=== PATIENT | female | born 1940 | race Caucasian/White ===

== ENCOUNTER 2017-10-05 03:58 | Inpatient (IN) | payer MEDICARE ==
[2017-10-05] MEDS ORDERED: Sodium Chloride 0.9% 10 ML Syringe FLUSH PRN (04:22)
[2017-10-05] MEDS ORDERED: HYDROmorphone 0.5 MG/0.5 ML Syringe IVPUSH ONE (04:24)
[2017-10-05] MEDS ORDERED: Ondansetron 4 MG/2 ML SDV IVPUSH ONE (04:24)
--- NOTE | 2017-10-05 04:27 | EDM.PDOC ---
ED HPI GENERAL MEDICAL PROBLEM - General Chief Complaint: Abdominal Pain Stated Complaint: ABD PAIN Time Seen by Provider: 10/05/17 04:15 Source of Information: Reports: Patient, RN Notes Reviewed History Limitations: Reports: No Limitations - History of Present Illness INITIAL COMMENTS - FREE TEXT/NARRATIVE: 77-year-old female presents emergency department today complaint of abdominal pain, she states this really developed over the last 24 hours does have a history of diverticulitis she suspicious had this has returned she is not had any fevers she did have one episode of nausea and vomiting Middle Abdomen Pain Score (Numeric/FACES): 6 - Related Data Allergies Allergy/AdvReac Type Severity Reaction Status Date / Time nickel [Nickel] Allergy Hives Verified 10/16/15 15:59 Sulfa (Sulfonamide Allergy Hives Verified 10/16/15 15:59 Antibiotics) Home Meds: Home Meds Alendronate Sodium [Fosamax] 70 mg PO Q7D 06/11/15 [History] Aspirin [Adult Low Dose Aspirin EC] 81 mg PO DAILY 06/11/15 [History] Diclofenac Sodium [Voltaren] 75 mg PO BID 06/11/15 [History] Folic Acid 3 mg PO DAILY 06/11/15 [History] Leflunomide 20 mg PO DAILY 06/11/15 [History] Levothyroxine 75 mcg PO DAILY 06/11/15 [History] Methotrexate Sodium/PF [Methotrexate 25 mg/ml Vial] 0.8 ml SQ Q7D 06/11/15 [ History] Multivitamin with Minerals [Multiple Vitamin] 1 tab PO DAILY 06/11/15 [History] Omeprazole 40 mg PO DAILY 06/11/15 [History] Vitamin B Complex [B Complex] 1 tab PO DAILY 06/11/15 [History] Acetaminophen [Tylenol Extra Strength] 1,000 mg PO DAILY 10/16/15 [History] Past Medical History Cardiovascular History: Reports: Other (See Below) Other Cardiovascular History: bilateral ankle edema Gastrointestinal History: Reports: Diverticulosis, GERD Musculoskeletal History: Reports: Fracture, RA, Other (See Below) Other Musculoskeletal History: 2004 left wrist fracture, sciatic nerve pain Neurological History: Reports: Headaches, Chronic Endocrine/Metabolic History: Reports: Hypothyroidism - Infectious Disease History Infectious Disease History: Reports: Chicken Pox, Measles, Mumps - Past Surgical History HEENT Surgical History: Reports: Tonsillectomy Musculoskeletal Surgical History: Reports: Knee Replacement, Other (See Below) Other Musculoskeletal Surgeries/Procedures:: back surgery in Social & Family History - Tobacco Use Smoking Status *Q: Never Smoker Second Hand Smoke Exposure: No - Caffeine Use Caffeine Use: Reports: Tea - Alcohol Use Days Per Week of Alcohol Use: 3 Number of Drinks Per Day: 1 Total Drinks Per Week: 3 - Recreational Drug Use Recreational Drug Use: No ED ROS GENERAL - Review of Systems Review Of Systems: See Below Constitutional: Denies: Fever, Chills HEENT: Reports: No Symptoms Respiratory: Reports: No Symptoms Cardiovascular: Reports: No Symptoms GI/Abdominal: Reports: Abdominal Pain, Flatus, Nausea, Vomiting : Reports: No Symptoms Musculoskeletal: Reports: No Symptoms Skin: Reports: No Symptoms Neurological: Reports: No Symptoms ED EXAM, GI/ABD - Physical Exam Exam: See Below Exam Limited By: No Limitations General Appearance: Alert, WD/WN, No Apparent Distress Respiratory/Chest: No Respiratory Distress, Lungs Clear, Normal Breath Sounds, No Accessory Muscle Use Cardiovascular: Regular Rate, Rhythm, No Murmur GI/Abdominal Exam: Normal Bowel Sounds, Soft, No Organomegaly, No Distention, No Abnormal Bruit, Tender (Left lower quadrant) Course - Vital Signs Last Recorded V/S: Last Vital Signs Temp 96.8 F 10/05/17 04:09 Pulse 58 L 10/05/17 04:09 Resp 16 10/05/17 04:09 BP 124/71 10/05/17 05:15 Pulse Ox 95 10/05/17 04:09 - Orders/Labs/Meds Orders: Active Orders 24 hr Category Date Time Status Gastrointestinal Tube Mgmt [RC] ASDIRECTED Care 10/05/17 06:07 Ordered Peripheral IV Care [RC] . DIRECTED Care 10/05/17 04:22 Active Abdomen Pelvis w Cont [CT] Urgent Exams 10/05/17 04:22 Taken UA W/MICROSCOPIC [URIN] Urgent Lab 10/05/17 06:09 Uncollected Sodium Chloride 0.9% [Normal Saline] 1,000 ml Med 10/05/17 04:30 Active IV ASDIRECTED Sodium Chloride 0.9% [Saline Flush] Med 10/05/17 04:22 Active 10 ml FLUSH ASDIRECTED PRN Nasogastric Orogastric Tube Insertion [OM.PC] Routine Oth 10/05/17 06:07 Ordered Peripheral IV Insertion Adult [OM.PC] Urgent Oth 10/05/17 04:22 Ordered Medication Orders Sodium Chloride (Normal Saline) 1,000 mls @ 500 mls/hr IV ASDIRECTED STEPHEN Last Admin: 10/05/17 05:14 Dose: 500 mls/hr Sodium Chloride (Saline Flush) 10 ml FLUSH ASDIRECTED PRN PRN Reason: Keep Vein Open Last Admin: 10/05/17 04:34 Dose: 10 ml Labs: Laboratory Tests 10/05/17 10/05/17 10/05/17 Range/Units 04:35 04:35 04:35 WBC 12.1 H (4.5-11.0) K/uL RBC 4.01 (3.30-5.50) M/uL Hgb 12.9 (12.0-15.0) g/dL Hct 39.4 (36.0-48.0) % MCV 98 (80-98) fL MCH 32 H (27-31) pg MCHC 33 (32-36) % Plt Count 336 (150-400) K/uL Neut % (Auto) 82 H (36-66) % Lymph % (Auto) 11 L (24-44) % [place] % (Auto) 6 (2-6) % Eos % (Auto) 1 L (2-4) % Baso % (Auto) 0 (0-1) % Sodium 140 (140-148) mmol/L Potassium 4.7 (3.6-5.2) mmol/L Chloride 102 (100-108) mmol/L Carbon Dioxide 26 (21-32) mmol/L Anion Gap 11.7 (5.0-14.0) mmol/L BUN 24 H (7-18) mg/dL Creatinine 0.8 (0.6-1.0) mg/dL Est Cr Clr Drug Dosing 52.99 mL/min Estimated GFR (MDRD) > 60 (>60) Glucose 130 H (74-106) mg/dL Lactic Acid 3.0 H (0.4-2.0) mmol/L Calcium 9.7 D (8.5-10.1) mg/dL Total Bilirubin 0.6 (0.2-1.0) mg/dL AST 37 (15-37) U/L ALT 45 (12-78) U/L Alkaline Phosphatase 120 H (46-116) U/L Total Protein 7.2 (6.4-8.2) g/dL Albumin 3.4 (3.4-5.0) g/dL Globulin 3.8 H (2.3-3.5) g/dL Albumin/Globulin Ratio 0.9 L (1.2-2.2) Meds: Medications Generic Name Dose Route Start Last Admin Trade Name Freq PRN Reason Stop Dose Admin Sodium Chloride 1,000 mls @ 500 mls/hr 10/05/17 04:30 10/05/17 05:14 Normal Saline IV 500 mls/hr ASDIRECTED STEPHEN Administration Sodium Chloride 10 ml 10/05/17 04:22 10/05/17 04:34 Saline Flush FLUSH 10 ml ASDIRECTED PRN Administration Keep Vein Open Discontinued Medications Generic Name Dose Route Start Last Admin Trade Name Freq PRN Reason Stop Dose Admin Hydromorphone HCl 0.5 mg 10/05/17 04:24 10/05/17 04:36 Dilaudid IVPUSH 10/05/17 04:25 0.5 mg ONETIME ONE Administration Sodium Chloride 73 mls @ 3.3 mls/sec 10/05/17 04:56 10/05/17 05:05 Normal Saline IV 10/05/17 04:57 3.3 mls/sec ASDIRECTED STA Administration Iopamidol 100 ml 10/05/17 04:55 10/05/17 05:04 Isovue-300 (61%) IV 10/05/17 04:56 100 ml . DIRECTED STA Administration Ondansetron HCl 4 mg 10/05/17 04:24 10/05/17 04:34 Zofran IVPUSH 10/05/17 04:25 4 mg ONETIME ONE Administration Departure - Departure Time of Disposition: 06:10 Disposition: Admitted As Inpatient 66 Condition: Good Clinical Impression: Small bowel obstruction - Discharge Information Referrals: Stevie Lawson MD [Primary Care Provider] - Forms: ED Department Discharge - My Orders Last 24 Hours: My Active Orders 10/05/17 04:22 Peripheral IV Care [RC] . DIRECTED Abdomen Pelvis w Cont [CT] Urgent Sodium Chloride 0.9% [Saline Flush] 10 ml FLUSH ASDIRECTED PRN Peripheral IV Insertion Adult [OM.PC] Urgent 10/05/17 04:30 Sodium Chloride 0.9% [Normal Saline] 1,000 ml IV ASDIRECTED 10/05/17 06:07 Gastrointestinal Tube Mgmt [RC] ASDIRECTED Nasogastric Orogastric Tube Insertion [OM.PC] Routine 10/05/17 06:09 UA W/MICROSCOPIC [URIN] Urgent - Assessment/Plan Last 24 Hours: My Active Orders 10/05/17 04:22 Peripheral IV Care [RC] . DIRECTED Abdomen Pelvis w Cont [CT] Urgent Sodium Chloride 0.9% [Saline Flush] 10 ml FLUSH ASDIRECTED PRN Peripheral IV Insertion Adult [OM.PC] Urgent 10/05/17 04:30 Sodium Chloride 0.9% [Normal Saline] 1,000 ml IV ASDIRECTED 10/05/17 06:07 Gastrointestinal Tube Mgmt [RC] ASDIRECTED Nasogastric Orogastric Tube Insertion [OM.PC] Routine 10/05/17 06:09 UA W/MICROSCOPIC [URIN] Urgent Plan: Assessment Acuity = acute Site and laterality = small bowel obstruction Etiology = unclear etiology Manifestations = pain, nausea vomiting Location of injury = Home Lab values = WBC elevated at 12.1 consistent leukocytosis, lactic acid elevated at 3.0 consistent with lactic acidosis, CT scan describes the lesion above Plan Called and discussed the case with hospitalist song and dance performer he agreed, and evaluate the patient in the emergency department for admission, NG tube has been placed This note was dictated using [employer] voice recognition software please call with any questions on syntax or adela.
[2017-10-05] MEDS ORDERED: Sodium Chloride 0.9% 1,000 ML IV SCH (04:30)
[2017-10-05] MEDS ORDERED: Iopamidol 612 MG/ML 100 ML Bottle IV STA (04:55)
--- NOTE | 2017-10-05 07:52 | PCM.HP ---
H&P History of Present Illness - General Date of Service: 10/05/17 Admit Problem/Dx: Admission Diagnosis/Problem Admission Diagnosis/Problem Small bowel obstruction Source of Information: Patient, Family, Provider History Limitations: Reports: No Limitations - History of Present Illness Initial Comments - Free Text/Narative: Bea presents to the emergency room today with 24 hours of abdominal pain that has been progressing. Pain started yesterday morning without preceding incident and was relatively mild. Throughout the day she had some more intense episodes but they were not severe enough to cause her to seek attention. Overnight she had severe sharp midabdominal pain that radiated throughout her entire abdomen. These episodes would come and go in waves. She didn't take anything to make the pain go away but did feel better after vomiting once earlier this morning. No obvious trigger to make the pain worse. She's never had pain like this before. Last good bowel movement was about 3 days ago it she's had some small quantity loose bowel movements since that time. She does not report any fevers, chills, night sweats or weight loss. Appetite has been normal up until yesterday. Weight has been stable to slightly higher than usual. No complaints of cough or shortness of breath. She has never had abdominal surgery in the past. She did have lumbar surgery at the end of July but has not had any difficulties from this. Workup in the emergency room revealed evidence for a small bowel obstruction on the CT. Lactic acid is mildly elevated at 3. An NG tube has been placed. She will be admitted for further management. Middle Abdomen Pain Score (Numeric/FACES): 6 - Related Data Allergies/Adverse Reactions: Allergies Allergy/AdvReac Type Severity Reaction Status Date / Time nickel [Nickel] Allergy Hives Verified 10/16/15 15:59 Sulfa (Sulfonamide Allergy Hives Verified 10/16/15 15:59 Antibiotics) Home Medications: Home Meds Alendronate Sodium [Fosamax] 70 mg PO Q7D 06/11/15 [History] Aspirin [Adult Low Dose Aspirin EC] 81 mg PO DAILY 06/11/15 [History] Diclofenac Sodium [Voltaren] 75 mg PO BID 06/11/15 [History] Folic Acid 3 mg PO DAILY 06/11/15 [History] Leflunomide 20 mg PO DAILY 06/11/15 [History] Levothyroxine 75 mcg PO DAILY 06/11/15 [History] Methotrexate Sodium/PF [Methotrexate 25 mg/ml Vial] 0.8 ml SQ Q7D 06/11/15 [ History] Multivitamin with Minerals [Multiple Vitamin] 1 tab PO DAILY 06/11/15 [History] Omeprazole 40 mg PO DAILY 06/11/15 [History] Vitamin B Complex [B Complex] 1 tab PO DAILY 06/11/15 [History] Acetaminophen [Tylenol Extra Strength] 1,000 mg PO DAILY 10/16/15 [History] Past Medical History Cardiovascular History: Reports: Other (See Below) Other Cardiovascular History: bilateral ankle edema Gastrointestinal History: Reports: Diverticulosis, GERD Musculoskeletal History: Reports: Fracture, RA, Other (See Below) Other Musculoskeletal History: 2004 left wrist fracture, sciatic nerve pain Neurological History: Reports: Headaches, Chronic Endocrine/Metabolic History: Reports: Hypothyroidism - Infectious Disease History Infectious Disease History: Reports: Chicken Pox, Measles, Mumps - Past Surgical History HEENT Surgical History: Reports: Tonsillectomy Musculoskeletal Surgical History: Reports: Knee Replacement, Other (See Below) Other Musculoskeletal Surgeries/Procedures:: back surgery in Social & Family History - Family History Oncologic: Reports: Colon (Brother) - Tobacco Use Smoking Status *Q: Never Smoker Second Hand Smoke Exposure: No - Caffeine Use Caffeine Use: Reports: Tea - Alcohol Use Days Per Week of Alcohol Use: 3 Number of Drinks Per Day: 1 Total Drinks Per Week: 3 - Recreational Drug Use Recreational Drug Use: No H&P Review of Systems - Review of Systems: Review Of Systems: See Below Free Text/Narrative: A complete 12 point review of systems was obtained. Pertinent positives and negatives are noted in the history of present illness. All other systems were reviewed and were negative except as noted. Exam - Exam Exam: See Below - Vital Signs Vital Signs: Last Vital Signs Temp 36.0 C 10/05/17 04:09 Pulse 58 L 10/05/17 04:09 Resp 16 10/05/17 04:09 BP 130/64 10/05/17 06:20 Pulse Ox 95 10/05/17 04:09 Weight: 72.575 kg - Exam Quality Assessment: No: Supplemental Oxygen General: Alert, Oriented, Cooperative. No: Mild Distress HEENT: Conjunctiva Clear, Other (NG tube in place). No: Mucosa Moist & [place] ( dry), Scleral Icterus Neck: Supple, Trachea Midline. No: Lymphadenopathy Lungs: Clear to Auscultation, Normal Respiratory Effort Cardiovascular: Regular Rate, Regular Rhythm. No: Systolic Murmur GI/Abdominal Exam: Soft, Distended (Mild), Tender (Mild diffuse). No: Normal Bowel Sounds (Very hypoactive), Guarding Back Exam: Full Range of Motion, Other (Well-healed midline lumbar surgical scar. Mild tenderness on either side of the incision but no erythema, induration or fluctuance) Extremities: Pedal Edema (Trace ankle edema on the right). No: Joint Swelling, Increased Warmth Peripheral Pulses: 2+: Dorsalis Pedis (L), Dorsalis Pedis (R) Skin: Warm, Dry Neuro Extensive - Mental Status: Alert, Oriented x3, Nl Response to Commands Neuro Extensive - Motor, Sensory, Reflexes: CN II-XII Intact. No: Dysarthria, Abnormal Motor, Tremor Psychiatric: Alert, Normal Affect - Patient Data Lab Results Last 24 hrs: Laboratory Results - last 24 hr 10/05/17 10/05/17 10/05/17 Range/Units 04:35 04:35 04:35 WBC 12.1 H (4.5-11.0) K/uL RBC 4.01 (3.30-5.50) M/uL Hgb 12.9 (12.0-15.0) g/dL Hct 39.4 (36.0-48.0) % MCV 98 (80-98) fL MCH 32 H (27-31) pg MCHC 33 (32-36) % Plt Count 336 (150-400) K/uL Neut % (Auto) 82 H (36-66) % Lymph % (Auto) 11 L (24-44) % [place] % (Auto) 6 (2-6) % Eos % (Auto) 1 L (2-4) % Baso % (Auto) 0 (0-1) % Sodium 140 (140-148) mmol/L Potassium 4.7 (3.6-5.2) mmol/L Chloride 102 (100-108) mmol/L Carbon Dioxide 26 (21-32) mmol/L Anion Gap 11.7 (5.0-14.0) mmol/L BUN 24 H (7-18) mg/dL Creatinine 0.8 (0.6-1.0) mg/dL Est Cr Clr Drug Dosing 52.99 mL/min Estimated GFR (MDRD) > 60 (>60) Glucose 130 H (74-106) mg/dL Lactic Acid 3.0 H (0.4-2.0) mmol/L Calcium 9.7 D (8.5-10.1) mg/dL Total Bilirubin 0.6 (0.2-1.0) mg/dL AST 37 (15-37) U/L ALT 45 (12-78) U/L Alkaline Phosphatase 120 H (46-116) U/L Total Protein 7.2 (6.4-8.2) g/dL Albumin 3.4 (3.4-5.0) g/dL Globulin 3.8 H (2.3-3.5) g/dL Albumin/Globulin Ratio 0.9 L (1.2-2.2) Result Diagrams: 10/05/17 04:35 10/05/17 04:35 Imaging Impressions Last 24 hrs: CT scan of the abdomen and pelvis - images personally reviewed - there is evidence for small bowel obstruction with apparent transition point in the midline pelvis. No obvious mass or abnormality causing the obstruction. The radiologist also noted a rim-enhancing lesion dorsal to the lumbar spine fixation hardware with differential including seroma hematoma or abscess though no gas bubbles were noted. *Q Meaningful Use (ADM) - VTE *Q VTE Criteria *Q: - VTE Risk Assess *Q Each Risk Factor Represents 1 Point: None Total Score 1 Point Risk Factors: 0 Each Risk Factor Represents 2 Points: None Total Score 2 Point Risk Factors: 0 Each Risk Factor Represents 3 Points: Age 75 Years or Greater Total Score 3 Point Risk Factors: 3 Each Risk Factor Represents 5 Points: None Total Score 5 Point Risk Factors: 0 Venous Thromboembolism Risk Factor Score *Q: 3 - Stroke *Q Stroke Criteria *Q: - AMI *Q AMI Criteria *Q: - Problem List (1) Small bowel obstruction SNOMED Code(s): 603159718 ICD Code: K56.609 - UNSP INTESTNL OBST, UNSP TO PARTIAL VERSUS COMPLETE OBST Status: Acute Current Visit: Yes (2) Rheumatoid arthritis SNOMED Code(s): 41622103 ICD Code: M06.9 - RHEUMATOID ARTHRITIS, UNSPECIFIED Status: Acute Current Visit: Yes Qualifiers: Rheumatoid arthritis location: multiple sites Rheumatoid factor presence: unspecified presence Qualified Code(s): M06.9 - Rheumatoid arthritis, unspecified Problem List Initiated/Reviewed/Updated: Yes Orders Last 24hrs: Active Orders 24 hr Category Date Time Status Patient Status Manage Transfer [TRANSFER] Routine ADT 10/05/17 07:37 Ordered Gastrointestinal Tube Mgmt [RC] ASDIRECTED Care 10/05/17 06:07 Active Peripheral IV Care [RC] . DIRECTED Care 10/05/17 04:22 Active Abdomen Pelvis w Cont [CT] Urgent Exams 10/05/17 04:22 Taken UA W/MICROSCOPIC [URIN] Urgent Lab 10/05/17 06:09 Uncollected Sodium Chloride 0.9% [Normal Saline] 1,000 ml Med 10/05/17 04:30 Active IV ASDIRECTED Sodium Chloride 0.9% [Saline Flush] Med 10/05/17 04:22 Active 10 ml FLUSH ASDIRECTED PRN Nasogastric Orogastric Tube Insertion [OM.PC] Routine Oth 10/05/17 06:07 Ordered Peripheral IV Insertion Adult [OM.PC] Urgent Oth 10/05/17 04:22 Ordered Resuscitation Status Routine Resus Stat 10/05/17 07:38 Ordered Medication Orders Sodium Chloride (Normal Saline) 1,000 mls @ 500 mls/hr IV ASDIRECTED STEPHEN Last Admin: 10/05/17 05:14 Dose: 500 mls/hr Sodium Chloride (Saline Flush) 10 ml FLUSH ASDIRECTED PRN PRN Reason: Keep Vein Open Last Admin: 10/05/17 04:34 Dose: 10 ml Assessment/Plan Comment:: ASSESSMENT AND PLAN - Small bowel obstruction - no prior abdominal surgeries. No obvious cause for obstruction based on imaging. NG tube has been placed. Pain controlled at this time. Lactic acid level is mildly elevated, probably related to intravascular volume depletion with the obstruction. No evidence for infection at this time. -Fluid bolus and then repeat lactic acid -Continue NG tube -Nothing by mouth with some ice chips -Pain and nausea control -PPI -Repeat imaging in the morning -Surgical consultation if things do not get better or if things worsen Rheumatoid arthritis - chronic ailment that seems to be stable at this time. She receives methotrexate every Tuesday and had her dose 2 days ago. Maintenance issues - - DVT prophylaxis - mechanical - GI prophylaxis - PPI - Nutrition - nothing by mouth - Rocha catheter - not indicated CODE STATUS - full code Admission justification - This patient will be admitted for inpatient services and is medically appropriate meeting medical necessity for inpatient admission as outlined in my documentation. I reasonably expect the patient will require inpatient services that span a period time over 2 midnights. I reasonably expect this patient to be discharged or transferred within 96 hours after admission to the [facility]. Disposition - anticipate discharge home after the hospital stay Primary care physician - Dr. Renny Naranjo M.D.
[2017-10-05] MEDS ORDERED: LORazepam 2 MG/ML MDV IVPUSH PRN (09:18)
[2017-10-05] MEDS ORDERED: Morphine 2 MG/ML Syringe IVPUSH PRN (09:18)
[2017-10-05] MEDS ORDERED: Ondansetron 4 MG Tab.DIS PO PRN (09:18)
[2017-10-05] MEDS ORDERED: Acetaminophen 325 MG Tab PO PRN (09:18)
[2017-10-05] MEDS ORDERED: Ondansetron 4 MG/2 ML SDV IV PRN (09:18)
[2017-10-05] MEDS ORDERED: Sodium Chloride 0.9% 500 ML IV SCH (09:40)
[2017-10-05] MEDS: Folic Acid 1 MG Tab PO SCH (11:01)
[2017-10-05] MEDS: Leflunomide 20 MG Tab PO SCH (11:01)
[2017-10-05] MEDS: Levothyroxine 75 MCG Tab PO SCH (11:01)
[2017-10-05] MEDS: Pantoprazole 40 MG Vial IV SCH (11:02)
[2017-10-05] MEDS: Sodium Chloride 0.9% 1,000 ML IV SCH ×2 (11:02→19:00)
[2017-10-05] MEDS ORDERED: Benzocaine/Cetylpyridinium/Menthol Lozenge MUCMEM PRN (19:43)
[2017-10-06] MEDS: Sodium Chloride 0.9% 1,000 ML IV SCH ×2 (03:06→11:01)
[2017-10-06] MEDS: Levothyroxine 75 MCG Tab PO SCH (08:43)
[2017-10-06] MEDS: Leflunomide 20 MG Tab PO SCH (08:43)
[2017-10-06] MEDS: Folic Acid 1 MG Tab PO SCH (08:43)
--- NOTE | 2017-10-06 09:58 | CR ---
Abdomen 2V AP Flat Upright HISTORY: f/u [facility] FINDINGS: Bowel gas pattern is nonspecific. No obstruction or free air is identified. No soft tissue mass, orga nomegaly, or abnormal calcifications are seen. There is posterior rita and pedicle screw fusion L4 thr ough S1 bilaterally. IMPRESSION: Nonspecific abdomen. No bowel obstruction or free air is identified.
--- NOTE | 2017-10-06 10:05 | PCM.PN ---
- General Info Date of Service: 10/06/17 Functional Status: Reports: Pain Controlled - Review of Systems General: Denies: Fever Gastrointestinal: Reports: Abdominal Pain (mild) Systems Review Comment:: no acute events overnight. She did have a small bowel movement. She is passing gas. Abdominal pain has improved significantly but not quite resolved. X-ray looks better though not quite back to normal. Minimal if any NG tube drainage. We did clamp her tube for a couple hours this morning and she did not have any nausea or increase in pain and there was no NG drainage and the tube was reconnected to suction. The tube has been pulled as of early afternoon. - Patient Data Vitals - Most Recent: Last Vital Signs Temp 36.2 C 10/06/17 08:04 Pulse 74 10/06/17 08:04 Resp 20 10/06/17 08:04 BP 130/50 L 10/06/17 08:04 Pulse Ox 99 10/06/17 08:04 Weight - Most Recent: 74.446 kg I&O - Last 24 Hours: Intake & Output 10/05/17 10/06/17 10/06/17 22:59 06:59 14:59 Intake Total 1811 1486 Output Total 750 300 Balance 1061 1186 Lab Results Last 24 Hours: Laboratory Results - last 24 hr 10/05/17 10/06/17 10/06/17 Range/Units 13:07 05:20 05:20 WBC 4.9 (4.5-11.0) K/uL RBC 3.39 (3.30-5.50) M/uL Hgb 10.7 L D (12.0-15.0) g/dL Hct 34.0 L (36.0-48.0) % MCV 100 H (80-98) fL MCH 32 H (27-31) pg MCHC 32 (32-36) % Plt Count 262 (150-400) K/uL Sodium 142 (140-148) mmol/L Potassium 4.1 (3.6-5.2) mmol/L Chloride 110 H (100-108) mmol/L Carbon Dioxide 25 (21-32) mmol/L Anion Gap 11.1 (5.0-14.0) mmol/L BUN 13 (7-18) mg/dL Creatinine 0.5 L (0.6-1.0) mg/dL Est Cr Clr Drug Dosing 84.79 mL/min Estimated GFR (MDRD) > 60 (>60) Glucose 89 (74-106) mg/dL Lactic Acid 1.3 (0.4-2.0) mmol/L Calcium 7.9 L D (8.5-10.1) mg/dL Magnesium 1.8 (1.8-2.4) mg/dL Med Orders - Current: Current Medications Acetaminophen (Tylenol) 650 mg PO Q4H PRN PRN Reason: Pain (Mild 1-3)/fever Last Admin: 10/05/17 11:43 Dose: 650 mg Benzocaine/Menthol (Cepacol Sore Throat) 1 lozenge MUCMEM 6XDAY PRN PRN Reason: Other Last Admin: 10/05/17 20:59 Dose: 1 pack Folic Acid (Folic Acid) 3 mg PO DAILY [facility] Last Admin: 10/06/17 08:43 Dose: 3 mg Sodium Chloride (Normal Saline) 1,000 mls @ 75 mls/hr IV ASDIRECTED [facility] Leflunomide (Arava) 20 mg PO DAILY [facility] Last Admin: 10/06/17 08:43 Dose: 20 mg Levothyroxine Sodium (Levothyroxine) 75 mcg PO ACBREAKFAST [facility] Last Admin: 10/06/17 08:43 Dose: 75 mcg Lorazepam (Ativan) 0.5 - 1 mg IVPUSH Q4H PRN PRN Reason: Nausea/Vomiting Morphine Sulfate (Morphine) 2 - 4 mg IVPUSH Q2H PRN PRN Reason: Pain (severe 7-10) Last Admin: 10/05/17 20:34 Dose: 2 mg Ondansetron HCl (Zofran Odt) 4 mg PO Q6H PRN PRN Reason: Nausea able to take PO Ondansetron HCl (Zofran) 4 mg IV Q6H PRN PRN Reason: Nausea/Vomiting Pantoprazole Sodium (Protonix Iv) 40 mg IV Q24H [facility] Last Admin: 10/05/17 11:02 Dose: 40 mg Sodium Chloride (Saline Flush) 10 ml FLUSH ASDIRECTED PRN PRN Reason: Keep Vein Open Last Admin: 10/05/17 04:34 Dose: 10 ml Discontinued Medications Hydromorphone HCl (Dilaudid) 0.5 mg IVPUSH ONETIME ONE Stop: 10/05/17 04:25 Last Admin: 10/05/17 04:36 Dose: 0.5 mg Sodium Chloride (Normal Saline) 1,000 mls @ 500 mls/hr IV ASDIRECTED STEPHEN Last Admin: 10/05/17 05:14 Dose: 500 mls/hr Sodium Chloride (Normal Saline) 73 mls @ 3.3 mls/sec IV ASDIRECTED STA Stop: 10/05/17 04:57 Last Admin: 10/05/17 05:05 Dose: 3.3 mls/sec Sodium Chloride (Normal Saline) 1,000 mls @ 125 mls/hr IV ASDIRECTED STEPHEN Last Admin: 10/06/17 03:06 Dose: 125 mls/hr Sodium Chloride (Normal Saline) 500 mls @ 999 mls/hr IV ASDIRECTED STEPHEN Stop: 10/05/17 10:11 Last Admin: 10/05/17 10:04 Dose: 999 mls/hr Iopamidol (Isovue-300 (61%)) 100 ml IV . DIRECTED STA Stop: 10/05/17 04:56 Last Admin: 10/05/17 05:04 Dose: 100 ml Ondansetron HCl (Zofran) 4 mg IVPUSH ONETIME ONE Stop: 10/05/17 04:25 Last Admin: 10/05/17 04:34 Dose: 4 mg - Exam Quality Assessment: No: Supplemental Oxygen General: Alert, Oriented, Cooperative, No Acute Distress HEENT: Other (NG tube right nare) Lungs: Normal Respiratory Effort GI/Abdominal Exam: Normal Bowel Sounds, Soft, No Distention, Tender (mild diffuse) Extremities: No Pedal Edema - Problem List & Annotations (1) Small bowel obstruction SNOMED Code(s): 004811123 Code(s): K56.609 - UNSP INTESTNL OBST, UNSP TO PARTIAL VERSUS COMPLETE OBST Status: Acute Current Visit: Yes (2) Rheumatoid arthritis SNOMED Code(s): 00688595 Code(s): M06.9 - RHEUMATOID ARTHRITIS, UNSPECIFIED Status: Chronic Current Visit: Yes Qualifiers: Rheumatoid arthritis location: multiple sites Rheumatoid factor presence: unspecified presence Qualified Code(s): M06.9 - Rheumatoid arthritis, unspecified - Problem List Review Problem List Initiated/Reviewed/Updated: Yes - My Orders Last 24 Hours: My Active Orders 10/05/17 09:18 Patient Status [ADT] Routine Intake and Output [RC] QSHIFT Notify Provider Vital Signs [RC] ASDIRECTED Oxygen Therapy [RC] PRN Up ad Jordyn [RC] ASDIRECTED VTE/DVT Education [RC] Per Unit Routine Vital Signs [RC] Q4H Acetaminophen [Tylenol] 650 mg PO Q4H PRN LORazepam [Ativan] 0.5 - 1 mg IVPUSH Q4H PRN Morphine 2 - 4 mg IVPUSH Q2H PRN Ondansetron [Zofran ODT] 4 mg PO Q6H PRN Ondansetron [Zofran] 4 mg IV Q6H PRN Sequential Compression Device [OM.PC] Per Unit Routine 10/05/17 10:00 Pantoprazole [ProTONIX IV] 40 mg IV Q24H 10/05/17 19:43 Benzocaine/Cetylpyrd/Menthol [Cepacol Sore Throat] 1 lozenge MUCMEM 6XDAY PRN 10/06/17 10:02 Communication Order [RC] ROUTINE 10/06/17 10:03 Sodium Chloride 0.9% [Normal Saline] 1,000 ml IV ASDIRECTED 10/07/17 05:00 Abdomen 2V AP Flat Upright [CR] DAILY - Plan Plan:: ASSESSMENT AND PLAN - Small bowel obstruction - no prior abdominal surgeries. clinically doing well at this time an NG tube is out. Plan to monitor clinically and repeat imaging in the morning. -discontinue NG tube -clear liquids -Pain and nausea control -PPI -Repeat imaging in the morning -Surgical consultation if things do not get better or if things worsen Rheumatoid arthritis - chronic ailment that seems to be stable at this time. She receives methotrexate every Tuesday and had her dose 2 days ago. Maintenance issues - - DVT prophylaxis - mechanical - GI prophylaxis - PPI - Nutrition - clear liquids Disposition - anticipate discharge home after the hospital stay Danny Naranjo M.D.
[2017-10-06] MEDS: Pantoprazole 40 MG Vial IV SCH (10:54)
[2017-10-07] MEDS: Sodium Chloride 0.9% 1,000 ML IV SCH (00:29)
[2017-10-07] MEDS: Levothyroxine 75 MCG Tab PO SCH (07:23)
[2017-10-07] MEDS: Leflunomide 20 MG Tab PO SCH (09:36)
[2017-10-07] MEDS: Folic Acid 1 MG Tab PO SCH (09:36)
[2017-10-07] MEDS: Pantoprazole 40 MG Vial IV SCH (09:37)
--- NOTE | 2017-10-07 10:36 | CR ---
Abdomen 2V AP Flat Upright HISTORY: f/u [facility] FINDINGS: Bowel gas pattern is nonspecific. No obstruction or free air is identified. No soft tissue mass, orga nomegaly, or abnormal calcifications are seen. Posterior rita and pedicle screw fusion is noted lower lumbar spine. IMPRESSION: Small bowel obstructive changes appear to have resolved since yesterday's exam.
[2017-10-07 12:25] VITALS: BP 150/74
--- NOTE | 2017-10-07 13:03 | PCM.DCSUM1 ---
Discharge Summary - Hospital Course Brief History: 77-year-old female with no previous abdominal surgeries who presented with abdominal pain and bloating. She was admitted for management of a small bowel obstruction. - Discharge Data Discharge Date: 10/07/17 Discharge Disposition: Home, Self-Care 01 Condition: Stable - Discharge Diagnosis/Problem(s) (1) Small bowel obstruction SNOMED Code(s): 408592619 ICD Code: K56.609 - UNSP INTESTNL OBST, UNSP TO PARTIAL VERSUS COMPLETE OBST Status: Acute (2) Rheumatoid arthritis SNOMED Code(s): 05260841 ICD Code: M06.9 - RHEUMATOID ARTHRITIS, UNSPECIFIED Status: Chronic Qualifiers: Rheumatoid arthritis location: multiple sites Rheumatoid factor presence: unspecified presence Qualified Code(s): M06.9 - Rheumatoid arthritis, unspecified - Patient Summary/Data Hospital Course: Bea presented to the emergency room with abdominal pain, watery diarrhea and nausea. Workup in the emergency room suggested a small bowel obstruction with transition point in the pelvis but no obvious cause for obstruction. An NG tube was placed and she was admitted to the hospital for hydration and further management. Overnight following admission she was able to have a bowel movement. She continued to pass gas the following morning. Abdominal x-ray showed one residual loop of bowel that was dilated but improved from admission. We clamped her NG tube for more than 2 hours and had a no increase in symptoms. The NG tube was ultimately removed the morning after admission. She continued to improve following removal. She has had several bowel movements which have been soft. She has not had any fevers. She is tolerated clear liquids and finally full liquids prior to hospital discharge. Her pain has essentially resolved at this time. The exact cause for her obstruction is not entirely clear but she has improved very quickly with nonsurgical management. I believe she is safe for outpatient management at this time. She will be on full liquids for a few days before transitioning to a soft diet. She will follow-up if symptoms do not continue to get better or if they get worse. - Patient Instructions Diet: Full Liquid Diet (For the next few days) Diet, Other: starting Tuesday you may resume a soft diet Activity: As Tolerated Showering/Bathing: May Shower Notify Provider of: Fever, Increased Pain, Nausea and/or Vomiting Other/Special Instructions: 1. You were in the hospital for management of a small bowel obstruction. Exact cause for the obstruction is not entirely clear but has resolved on its own without any intervention other than decompression of the stomach and intestines. I would recommend a liquid diet for the next 2-3 days and then start a soft diet for several days thereafter. 2. Please continue your usual medications as previously prescribed. 3. Seek medical attention if you develop fever greater than 101, have severe abdominal pain, persistent vomiting or severe diarrhea. - Discharge Plan Home Medications: Home Meds Alendronate Sodium [Fosamax] 70 mg PO Q7D 06/11/15 [History] Aspirin [Adult Low Dose Aspirin EC] 81 mg PO DAILY 06/11/15 [History] Diclofenac Sodium [Voltaren] 75 mg PO BID 06/11/15 [History] Folic Acid 3 mg PO DAILY 06/11/15 [History] Leflunomide 20 mg PO DAILY 06/11/15 [History] Levothyroxine 75 mcg PO DAILY 06/11/15 [History] Methotrexate Sodium/PF [Methotrexate 25 mg/ml Vial] 0.8 ml SQ Q7D 06/11/15 [ History] Multivitamin with Minerals [Multiple Vitamin] 1 tab PO DAILY 06/11/15 [History] Omeprazole 40 mg PO DAILY 06/11/15 [History] Vitamin B Complex [B Complex] 1 tab PO DAILY 06/11/15 [History] Acetaminophen [Tylenol Extra Strength] 1,000 mg PO DAILY 10/16/15 [History] Patient Handouts: Small Bowel Obstruction, [id number], Full Liquid Diet Referrals: Stevie Lawson MD [Primary Care Provider] - (follow-up as needed if symptoms do not continue to get better or if they get worse) - Discharge Summary/Plan Comment DC Time >30 min.: No (25) - Patient Data Vitals - Most Recent: Last Vital Signs Temp 36.6 C 10/07/17 12:25 Pulse 69 10/07/17 12:25 Resp 16 10/07/17 12:25 BP 150/74 H 10/07/17 12:25 Pulse Ox 96 10/07/17 12:25 Weight - Most Recent: 74.446 kg I&O - Last 24 hours: Intake & Output 10/06/17 10/07/17 10/07/17 22:59 06:59 14:59 Intake Total 945 2000 1080 Balance 945 1999 1080 Med Orders - Current: Current Medications Acetaminophen (Tylenol) 650 mg PO Q4H PRN PRN Reason: Pain (Mild 1-3)/fever Last Admin: 10/05/17 11:43 Dose: 650 mg Benzocaine/Menthol (Cepacol Sore Throat) 1 lozenge MUCMEM 6XDAY PRN PRN Reason: Other Last Admin: 10/05/17 20:59 Dose: 1 pack Folic Acid (Folic Acid) 3 mg PO DAILY [facility] Last Admin: 10/07/17 09:36 Dose: 3 mg Sodium Chloride (Normal Saline) 1,000 mls @ 75 mls/hr IV ASDIRECTED [facility] Last Admin: 10/07/17 00:29 Dose: 75 mls/hr Leflunomide (Arava) 20 mg PO DAILY [facility] Last Admin: 10/07/17 09:36 Dose: 20 mg Levothyroxine Sodium (Levothyroxine) 75 mcg PO ACBREAKFAST [facility] Last Admin: 10/07/17 07:23 Dose: 75 mcg Lorazepam (Ativan) 0.5 - 1 mg IVPUSH Q4H PRN PRN Reason: Nausea/Vomiting Morphine Sulfate (Morphine) 2 - 4 mg IVPUSH Q2H PRN PRN Reason: Pain (severe 7-10) Last Admin: 10/05/17 20:34 Dose: 2 mg Ondansetron HCl (Zofran Odt) 4 mg PO Q6H PRN PRN Reason: Nausea able to take PO Ondansetron HCl (Zofran) 4 mg IV Q6H PRN PRN Reason: Nausea/Vomiting Pantoprazole Sodium (Protonix Iv) 40 mg IV Q24H [facility] Last Admin: 10/07/17 09:37 Dose: 40 mg Sodium Chloride (Saline Flush) 10 ml FLUSH ASDIRECTED PRN PRN Reason: Keep Vein Open Last Admin: 10/05/17 04:34 Dose: 10 ml Discontinued Medications Hydromorphone HCl (Dilaudid) 0.5 mg IVPUSH ONETIME ONE Stop: 10/05/17 04:25 Last Admin: 10/05/17 04:36 Dose: 0.5 mg Sodium Chloride (Normal Saline) 1,000 mls @ 500 mls/hr IV ASDIRECTED [facility] Last Admin: 10/05/17 05:14 Dose: 500 mls/hr Sodium Chloride (Normal Saline) 73 mls @ 3.3 mls/sec IV ASDIRECTED STA Stop: 10/05/17 04:57 Last Admin: 10/05/17 05:05 Dose: 3.3 mls/sec Sodium Chloride (Normal Saline) 1,000 mls @ 125 mls/hr IV ASDIRECTED STEPHEN Last Admin: 10/06/17 03:06 Dose: 125 mls/hr Sodium Chloride (Normal Saline) 500 mls @ 999 mls/hr IV ASDIRECTED STEPHEN Stop: 10/05/17 10:11 Last Admin: 10/05/17 10:04 Dose: 999 mls/hr Iopamidol (Isovue-300 (61%)) 100 ml IV . DIRECTED STA Stop: 10/05/17 04:56 Last Admin: 10/05/17 05:04 Dose: 100 ml Ondansetron HCl (Zofran) 4 mg IVPUSH ONETIME ONE Stop: 10/05/17 04:25 Last Admin: 10/05/17 04:34 Dose: 4 mg - Exam Quality Assessment: Denies: Supplemental Oxygen General: Reports: Alert, Oriented, Cooperative, No Acute Distress Lungs: Reports: Normal Respiratory Effort GI/Abdominal Exam: Soft, No Distention *Q Meaningful Use (DIS) - VTE *Q VTE Criteria *Q: - Stroke *Q Stroke Criteria *Q: - AMI *Q AMI Criteria *Q:
== END 2017-10-07 13:45 | disposition home or self-care (01) | DRG 390 ==
LOC: JP.ED 03:58 → JP.2SS 07:37
PROVIDERS: ADMIT Internal Medicine; ATTEND Internal Medicine
DX: K56.609 Unspecified intestinal obstruction, unspecified as to partial versus complete obstruction (principal); M06.9 Rheumatoid arthritis, unspecified; E03.9 Hypothyroidism, unspecified; R10.32 Left lower quadrant pain; K21.9 Gastro-esophageal reflux disease without esophagitis; Z96.659 Presence of unspecified artificial knee joint; Z79.82 Long term (current) use of aspirin; Z88.2 Allergy status to sulfonamides; Z91.048 Other nonmedicinal substance allergy status
CPT/HCPCS: 36415; 74177; 80053; 83605; 85025; 96374; 99285; J1170; J2405; J7030; J7040; J7050; Q9967; 74020; 74020-26; 80048; 81001; 83735; 85027; 99284; A9270-GY; C9113; J2270

== ENCOUNTER 2018-10-21 20:24 | Emergency (ER) | payer MEDICARE ==
[2018-10-21] MEDS ORDERED: Pantoprazole 40 MG Vial IVPUSH STA (20:28)
[2018-10-21] MEDS ORDERED: Sodium Chloride 0.9% 1,000 ML IV SCH (20:30)
[2018-10-21] MEDS ORDERED: Lactated Ringers 1,000 ML IV SCH (20:30)
--- NOTE | 2018-10-21 20:57 | EDM.PDOC ---
ED HPI GENERAL MEDICAL PROBLEM - General Chief Complaint: Gastrointestinal Problem Stated Complaint: FAINTED Time Seen by Provider: 10/21/18 20:40 Source of Information: Reports: Patient, Old Records History Limitations: Reports: No Limitations - History of Present Illness INITIAL COMMENTS - FREE TEXT/NARRATIVE: 78 yo female with known diverticulosis and who is on warfarin therapy presents with onset earlier today of dark stools and now more recently had a coffee ground emesis. Has had more than one dark stool. Passed out in the bathroom before calling EMS. EMS noted a HR of 120 in the field. Patient reports only mild lower abdominal pain. Last INR 3.4 this past . Blood type A+. Is an [facility] patient. Was seen in the clinic recently for trigeminal neuralgia and started on Tegretol. Her old records initially suggested she was on ASA daily so Platelets were ordered, later found out the ASA had been stopped and warfarn started. FFP was then ordered. O+ blood available, will give this 2 units as there is insufficient time for a full cross-match before transfer is accomplished([facility] is full). In clinic on 08/22/18 her hgb was 12.3. Onset: Today Onset Date: 10/21/18 Onset Time: 08:00 Duration: Hour(s):, Getting Worse Location: Reports: Abdomen, Generalized Quality: Reports: Dull (lower abdomen) Severity: Mild Improves with: Reports: None Worsens with: Reports: None Context: Reports: Other (on warfarin) Associated Symptoms: Reports: Malaise, Nausea/Vomiting, Syncope (x one). Denies : Chest Pain, Fever/Chills, Shortness of Breath Treatments CONDUCTOR SYMPHONIC ORCHESTRA: Reports: Other (see below) (none) Lower Abdomen Pain Score (Numeric/FACES): 0 - Related Data Allergies Allergy/AdvReac Type Severity Reaction Status Date / Time nickel [Nickel] Allergy Hives Verified 10/16/15 15:59 Sulfa (Sulfonamide Allergy Hives Verified 10/16/15 15:59 Antibiotics) Home Meds: Home Meds Alendronate Sodium [Fosamax] 70 mg PO Q7D 06/11/15 [History] Aspirin [Adult Low Dose Aspirin EC] 81 mg PO DAILY 06/11/15 [History] Diclofenac Sodium [Voltaren] 75 mg PO BID 06/11/15 [History] Folic Acid 3 mg PO DAILY 06/11/15 [History] Leflunomide 20 mg PO DAILY 06/11/15 [History] Levothyroxine 75 mcg PO DAILY 06/11/15 [History] Methotrexate Sodium/PF [Methotrexate 25 mg/ml Vial] 0.8 ml SQ Q7D 06/11/15 [ History] Multivitamin with Minerals [Multiple Vitamin] 1 tab PO DAILY 06/11/15 [History] Omeprazole 40 mg PO DAILY 06/11/15 [History] Vitamin B Complex [B Complex] 1 tab PO DAILY 06/11/15 [History] Acetaminophen [Tylenol Extra Strength] 1,000 mg PO DAILY 10/16/15 [History] Past Medical History Cardiovascular History: Reports: Other (See Below) Other Cardiovascular History: bilateral ankle edema Gastrointestinal History: Reports: Diverticulosis, GERD Musculoskeletal History: Reports: Fracture, RA, Other (See Below) Other Musculoskeletal History: 2004 left wrist fracture, sciatic nerve pain Neurological History: Reports: Headaches, Chronic Endocrine/Metabolic History: Reports: Hypothyroidism - Infectious Disease History Infectious Disease History: Reports: Chicken Pox, Measles, Mumps, Shingles - Past Surgical History HEENT Surgical History: Reports: Tonsillectomy Musculoskeletal Surgical History: Reports: Knee Replacement, Other (See Below) Other Musculoskeletal Surgeries/Procedures:: back surgery in Social & Family History - Family History Oncologic: Reports: Colon - Tobacco Use Smoking Status *Q: Never Smoker - Caffeine Use Caffeine Use: Reports: Tea - Recreational Drug Use Recreational Drug Use: No ED ROS GENERAL - Review of Systems Review Of Systems: See Below Constitutional: Reports: Malaise, Fatigue, Decreased Appetite HEENT: Reports: No Symptoms Respiratory: Reports: No Symptoms Cardiovascular: Reports: Lightheadedness Endocrine: Reports: No Symptoms GI/Abdominal: Reports: Abdominal Pain (mild, lower), Black Stool, Hematemesis, Melena, Nausea, Vomiting. Denies: Bloody Stool, Constipation, Diarrhea, Distension, Hematochezia : Reports: No Symptoms Musculoskeletal: Reports: No Symptoms Skin: Reports: No Symptoms Neurological: Reports: No Symptoms Psychiatric: Reports: No Symptoms ED EXAM, GI/ABD - Physical Exam Exam: See Below Exam Limited By: No Limitations General Appearance: Alert, WD/WN, Mild Distress Eyes: Bilateral: EOMI, Pale Conjunctiva Ears: Normal External Exam, Normal Canal, Hearing Grossly Normal Nose: Normal Inspection, Normal Mucosa, No Blood Throat/Mouth: Normal Inspection, Normal Lips, Normal Oropharynx, Normal Voice, No Airway Compromise Head: Atraumatic, Normocephalic Neck: Normal Inspection Respiratory/Chest: No Respiratory Distress, Lungs Clear, Normal Breath Sounds, No Accessory Muscle Use Cardiovascular: Regular Rate, Rhythm, No Edema, Tachycardia GI/Abdominal Exam: Normal Bowel Sounds, Soft, No Distention, Tender (mild lower abdominal tenderness) Back Exam: Normal Inspection Extremities: Normal Inspection, Normal Range of Motion, Non-Tender, No Pedal Edema Neurological: Alert, Oriented, CN II-XII Intact, Normal Cognition, No Motor/ Sensory Deficits Psychiatric: Normal Affect, Normal Mood Skin Exam: Warm, Dry, Intact, No Rash, Pallor Lymphatic: No Adenopathy Course - Vital Signs Text/Narrative:: Accepted by Dr. Hernandez @ [facility] @ [id number] Last Recorded V/S: Last Vital Signs Temp 35.7 C 10/21/18 20:34 Pulse 127 H 10/21/18 20:34 Resp 16 10/21/18 20:34 BP 114/62 10/21/18 20:34 Pulse Ox 99 10/21/18 20:34 - Orders/Labs/Meds Orders: Active Orders 24 hr Category Date Time Status Rocha Catheter Insertion [Insert Urinary Catheter] [OM. Care 10/21/18 20:30 Ordered PC] Q24H Urinary Catheter Assessment [RC] ASDIRECTED Care 10/21/18 20:28 Active ABO/RH TYPE [BBK] Routine Lab 10/21/18 20:59 Results FRESH FROZEN PLASMA [BBK] Stat Lab 10/21/18 20:29 Received PATIENT RETYPE [BBK] Routine Lab 10/21/18 20:59 Results PLATELETS APH [BBK] Stat Lab 10/21/18 20:29 Received UA W/MICROSCOPIC [URIN] Stat Lab 10/21/18 21:07 Ordered Lactated Ringers [Ringers, Lactated] 1,000 ml Med 10/21/18 20:30 Active IV ASDIRECTED Sodium Chloride 0.9% [Normal Saline] 1,000 ml Med 10/21/18 20:30 Active IV ASDIRECTED Transfuse Red Blood Cells [COMM] Stat Oth 10/21/18 20:38 Ordered Medication Orders Lactated Ringer's (Ringers, Lactated) 1,000 mls @ 500 mls/hr IV ASDIRECTED [facility] Last Admin: 10/21/18 21:18 Dose: 500 mls/hr Sodium Chloride (Normal Saline) 1,000 mls @ 150 mls/hr IV ASDIRECTED STEPHEN Labs: Laboratory Tests 10/21/18 10/21/18 10/21/18 Range/Units 20:27 20:27 20:40 WBC 9.2 (4.5-11.0) K/uL RBC 2.47 L (3.30-5.50) M/uL Hgb 8.3 L D (12.0-15.0) g/dL Hct 25.5 L (36.0-48.0) % MCV 103 H (80-98) fL MCH 34 H (27-31) pg MCHC 33 (32-36) % Plt Count 305 (150-400) K/uL PT 28.0 H (9.5-12.0) sec INR 2.69 H (0.80-1.20) Sodium 142 (140-148) mmol/L Potassium 4.2 (3.6-5.2) mmol/L Chloride 108 (100-108) mmol/L Carbon Dioxide 24 (21-32) mmol/L Anion Gap 10.4 (5.0-14.0) mmol/L BUN 59 H D (7-18) mg/dL Creatinine 0.5 L (0.6-1.0) mg/dL Est Cr Clr Drug Dosing 76.71 mL/min Estimated GFR (MDRD) > 60 (>60) Glucose 154 H (74-106) mg/dL Calcium 8.5 (8.5-10.1) mg/dL Troponin I 0.019 (0.000-0.056) ng/mL Blood Type 10/21/18 Range/Units 20:59 WBC (4.5-11.0) K/uL RBC (3.30-5.50) M/uL Hgb (12.0-15.0) g/dL Hct (36.0-48.0) % MCV (80-98) fL MCH (27-31) pg MCHC (32-36) % Plt Count (150-400) K/uL PT (9.5-12.0) sec INR (0.80-1.20) Sodium (140-148) mmol/L Potassium (3.6-5.2) mmol/L Chloride (100-108) mmol/L Carbon Dioxide (21-32) mmol/L Anion Gap (5.0-14.0) mmol/L BUN (7-18) mg/dL Creatinine (0.6-1.0) mg/dL Est Cr Clr Drug Dosing mL/min Estimated GFR (MDRD) (>60) Glucose (74-106) mg/dL Calcium (8.5-10.1) mg/dL Troponin I (0.000-0.056) ng/mL Blood Type O POSITIVE Meds: Medications Generic Name Dose Route Start Last Admin Trade Name Freq PRN Reason Stop Dose Admin Lactated Ringer's 1,000 mls @ 500 mls/hr 10/21/18 20:30 10/21/18 21:18 Ringers, Lactated IV 500 mls/hr ASDIRECTED STEPHEN Administration Sodium Chloride 1,000 mls @ 150 mls/hr 10/21/18 20:30 Normal Saline IV ASDIRECTED STEPHEN Discontinued Medications Generic Name Dose Route Start Last Admin Trade Name Freq PRN Reason Stop Dose Admin Hydromorphone HCl 0.5 mg 10/21/18 21:19 10/21/18 21:22 Dilaudid IVPUSH 10/21/18 21:20 0.5 mg ONETIME ONE Administration Metoclopramide HCl 10 mg 10/21/18 20:59 10/21/18 21:14 Reglan IVPUSH 10/21/18 21:00 10 mg ONETIME ONE Administration Pantoprazole Sodium 80 mg 10/21/18 20:28 10/21/18 21:16 Protonix Iv IVPUSH 10/21/18 20:29 80 mg .BOLUS STA Administration Phytonadione 5 mg 10/21/18 20:40 10/21/18 21:21 Aquamephyton SUBCUT 10/21/18 20:41 5 mg ONETIME ONE Administration Phytonadione Confirm 10/21/18 21:11 Aquamephyton Administered 10/21/18 21:12 Dose 10 mg .ROUTE .STK-MED ONE Departure - Departure Time of Disposition: 21:45 Disposition: DC/Tfer to Acute Hospital 02 Condition: Serious Clinical Impression: GI bleeding Qualifiers: GI bleed type/associated pathology: unspecified gastrointestinal hemorrhage type Qualified Code(s): K92.2 - Gastrointestinal hemorrhage, unspecified Anemia Qualifiers: Anemia type: unspecified type Qualified Code(s): D64.9 - Anemia, unspecified - Discharge Information *PRESCRIPTION DRUG MONITORING PROGRAM REVIEWED*: No *COPY OF PRESCRIPTION DRUG MONITORING REPORT IN PATIENT MERNA: No Referrals: Stevie Lawson MD [Primary Care Provider] - Forms: ED Department Discharge - My Orders Last 24 Hours: My Active Orders 10/21/18 20:28 Urinary Catheter Assessment [RC] ASDIRECTED 10/21/18 20:29 FRESH FROZEN PLASMA [BBK] Stat PLATELETS APH [BBK] Stat 10/21/18 20:30 Rocha Catheter Insertion [Insert Urinary Catheter] [OM.PC] Q24H Lactated Ringers [Ringers, Lactated] 1,000 ml IV ASDIRECTED Sodium Chloride 0.9% [Normal Saline] 1,000 ml IV ASDIRECTED 10/21/18 20:38 Transfuse Red Blood Cells [COMM] Stat 10/21/18 20:59 ABO/RH TYPE [BBK] Routine PATIENT RETYPE [BBK] Routine 10/21/18 21:07 UA W/MICROSCOPIC [URIN] Stat - Assessment/Plan Last 24 Hours: My Active Orders 10/21/18 20:28 Urinary Catheter Assessment [RC] ASDIRECTED 10/21/18 20:29 FRESH FROZEN PLASMA [BBK] Stat PLATELETS APH [BBK] Stat 10/21/18 20:30 Rocha Catheter Insertion [Insert Urinary Catheter] [OM.PC] Q24H Lactated Ringers [Ringers, Lactated] 1,000 ml IV ASDIRECTED Sodium Chloride 0.9% [Normal Saline] 1,000 ml IV ASDIRECTED 10/21/18 20:38 Transfuse Red Blood Cells [COMM] Stat 10/21/18 20:59 ABO/RH TYPE [BBK] Routine PATIENT RETYPE [BBK] Routine 10/21/18 21:07 UA W/MICROSCOPIC [URIN] Stat
[2018-10-21] MEDS ORDERED: Metoclopramide 10 MG/2 ML SDV IVPUSH ONE (20:59)
[2018-10-21] MEDS ORDERED: HYDROmorphone 0.5 MG/0.5 ML Syringe IVPUSH ONE (21:19)
[2018-10-21 22:06] VITALS: BP 152/77
== END 2018-10-21 22:05 ==
LOC: JP.ED 20:24
DX: K92.2 Gastrointestinal hemorrhage, unspecified (principal); D64.9 Anemia, unspecified; E03.9 Hypothyroidism, unspecified; Z79.82 Long term (current) use of aspirin; Z79.899 Other long term (current) drug therapy; Z88.2 Allergy status to sulfonamides; Z91.048 Other nonmedicinal substance allergy status
CPT/HCPCS: 36415; 36430; 51702; 80048; 81001; 84484; 85027; 85610; 86850; 86900; 86901; 86920; 86922; 96361; 96372; 96374; 96375; 99285; C9113; J1170; J2765; J3430; J7120; P9016; P9017; P9037

== ENCOUNTER 2018-10-31 14:15 | Emergency (ER) | payer MEDICARE ==
--- NOTE | 2018-10-31 15:13 | EDM.PDOC ---
ED HPI GENERAL MEDICAL PROBLEM - General Chief Complaint: General Stated Complaint: NO PLATELETTES Time Seen by Provider: 10/31/18 14:55 Source of Information: Reports: Patient, Old Records, Provider History Limitations: Reports: No Limitations - History of Present Illness INITIAL COMMENTS - FREE TEXT/NARRATIVE: 78 yo female here on referral from the clinic for thrombocytopenia. She was recently hospitalized in [facility] for anemia and a bleeding gastric ulcer that required a blood transfusion. While she was there she was placed on Tegretol for trigeminal neuralgia. Today she presented to the clinic for follow up and was noted to have many petechiae and some bruising. Thinks her last stool was a little darker than normal. Has had intermittent mild bleeding from both nares, easily controlled so far. Otherwise feels well. Onset: Gradual Duration: Day(s):, Getting Worse Location: Reports: Generalized Quality: Reports: Other (no pain) Severity: Severe Improves with: Reports: None Worsens with: Reports: Other (? 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) (none) - Related Data Allergies Allergy/AdvReac Type Severity Reaction Status Date / Time nickel [Nickel] Allergy Hives Verified 10/31/18 14:36 Sulfa (Sulfonamide Allergy Hives Verified 10/31/18 14:36 Antibiotics) Home Meds: Home Meds Folic Acid 3 mg PO DAILY 06/11/15 [History] Leflunomide 20 mg PO DAILY 06/11/15 [History] Levothyroxine 100 mcg PO DAILY 06/11/15 [History] Methotrexate Sodium/PF [Methotrexate 25 mg/ml Vial] 0.7 ml SQ Q7D 06/11/15 [ History] Multivitamin with Minerals [Multiple Vitamin] 1 tab PO DAILY 06/11/15 [History] Vitamin B Complex [B Complex] 1 tab PO DAILY 06/11/15 [History] Acetaminophen [Tylenol Extra Strength] 1,000 mg PO DAILY 10/16/15 [History] Calcium Carbonate [Calcium] 600 mg PO DAILY 10/31/18 [History] Cholecalciferol (Vitamin D3) [Vitamin D3] 1,000 unit PO DAILY 10/31/18 [History] Diltiazem HCl [Tiazac] 360 mg PO DAILY 10/31/18 [History] Ferrous Sulfate 325 mg PO DAILY 10/31/18 [History] Metoprolol Succinate [Toprol XL] 25 mg PO DAILY 10/31/18 [History] Multivitamin with Minerals [Multiple Vitamin] 1 tab PO DAILY 10/31/18 [History] Pantoprazole Sodium [Protonix] 60 mg PO DAILY 10/31/18 [History] carBAMazepine [TEGretol XR] 100 mg PO BID 10/31/18 [History] Past Medical History HEENT History: Reports: Impaired Vision Cardiovascular History: Reports: Afib, Other (See Below) Other Cardiovascular History: bilateral ankle edema Gastrointestinal History: Reports: Diverticulosis, GERD 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: , 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 Musculoskeletal History: Reports: Fracture, RA, Other (See Below) Other Musculoskeletal History: 2004 left wrist fracture, sciatic nerve pain Neurological History: Reports: Headaches, Chronic Endocrine/Metabolic History: Reports: Hypothyroidism Hematologic History: Reports: Anticoagulation Therapy, Blood Transfusion(s), Iron Deficiency Dermatologic History: Reports: Other (See Below) - Infectious Disease History Infectious Disease History: Reports: Chicken Pox, Measles, Mumps, Shingles - Past Surgical History Head Surgeries/Procedures: Reports: None HEENT Surgical History: Reports: Tonsillectomy Cardiovascular Surgical History: Reports: None GI Surgical History: Reports: None, Colonoscopy, EGD Endocrine Surgical History: Reports: None Neurological Surgical History: Reports: None Musculoskeletal Surgical History: Reports: Knee Replacement, Other (See Below) Other Musculoskeletal Surgeries/Procedures:: back surgery in Dermatological Surgical History: Reports: None Social & Family History - Family History Oncologic: Reports: Colon - Tobacco Use Smoking Status *Q: Never Smoker Second Hand Smoke Exposure: No - Caffeine Use Caffeine Use: Reports: None - Recreational Drug Use Recreational Drug Use: No ED ROS GENERAL - Review of Systems Review Of Systems: See Below Constitutional: Reports: No Symptoms HEENT: Reports: Nosebleed (mild on and off) Respiratory: Reports: No Symptoms Cardiovascular: Reports: No Symptoms Endocrine: Reports: No Symptoms GI/Abdominal: Reports: Other (stool ? slightly dark today x one) : Reports: No Symptoms Musculoskeletal: Reports: No Symptoms Skin: Reports: Rash (petechiae) Neurological: Reports: No Symptoms ED EXAM, GENERAL - Physical Exam Exam: See Below Exam Limited By: No Limitations General Appearance: Alert, WD/WN, No Apparent Distress Eye Exam: Bilateral Eye: Normal Inspection Ears: Normal External Exam, Normal Canal, Hearing Grossly Normal Ear Exam: Bilateral Ear: Auricle Normal, Canal Normal, TM normal Nose: Other (evidence of recent bleeding. Controlled at time of exam.) Throat/Mouth: Normal Lips, Normal Oropharynx, Normal Voice, No Airway Compromise , Other (bruising intraoral seen) Head: Atraumatic, Normocephalic Neck: Normal Inspection Respiratory/Chest: No Respiratory Distress, Lungs Clear, Normal Breath Sounds, No Accessory Muscle Use Cardiovascular: Regular Rate, Rhythm, No Edema GI/Abdominal: Soft, Non-Tender, Abnormal Bowel Sounds (increased) Back Exam: Normal Inspection. No: CVA Tenderness (R), CVA Tenderness (L) Extremities: Normal Inspection, Normal Range of Motion, Non-Tender, No Pedal Edema Neurological: Alert, Oriented, CN II-XII Intact, Normal Cognition, No Motor/ Sensory Deficits Psychiatric: Normal Affect, Normal Mood Skin Exam: Warm, Dry, Intact, Normal Color, Rash (petechial rash ). No: No Rash Course - Vital Signs Text/Narrative:: Accepted in transfer by Dr. Bernard @ [facility], [facility] Last Recorded V/S: Last Vital Signs Temp 36.6 C 10/31/18 14:37 Pulse 90 10/31/18 14:37 Resp 16 10/31/18 14:37 BP 155/52 H 10/31/18 14:37 Pulse Ox 96 10/31/18 14:37 - Orders/Labs/Meds Orders: Active Orders 24 hr Category Date Time Status Orthostatic Vital Signs [RC] ASDIRECTED Care 10/31/18 15:03 Ordered Labs: Laboratory Tests 10/31/18 Range/Units 14:33 Urine Color Yellow Urine Appearance Slightly cloudy Urine pH 5.0 (4.5-8.0) Ur Specific [place] 1.015 (1.008-1.030) Urine Protein Negative (NEGATIVE) mg/dL Urine Glucose (UA) Normal (NEGATIVE) mg/dL Urine Ketones Negative (NEGATIVE) mg/dL Urine Occult Blood Moderate (NEGATIVE) Urine Nitrite Negative (NEGATIVE) Urine Bilirubin Negative (NEGATIVE) Urine Urobilinogen Normal (NORMAL) mg/dL Ur Leukocyte Esterase Small (NEGATIVE) Departure - Departure Time of Disposition: 15:40 Disposition: DC/Tfer to Acute Hospital 02 Condition: Fair Clinical Impression: Thrombocytopenia Anemia Qualifiers: Anemia type: unspecified type Qualified Code(s): D64.9 - Anemia, unspecified - Discharge Information *PRESCRIPTION DRUG MONITORING PROGRAM REVIEWED*: No *COPY OF PRESCRIPTION DRUG MONITORING REPORT IN PATIENT MERNA: No Referrals: Stevie Lawson MD [Primary Care Provider] - - My Orders Last 24 Hours: My Active Orders 10/31/18 15:03 Orthostatic Vital Signs [RC] ASDIRECTED - Assessment/Plan Last 24 Hours: My Active Orders 10/31/18 15:03 Orthostatic Vital Signs [RC] ASDIRECTED
[2018-10-31] MEDS ORDERED: Lactated Ringers 1,000 ML IV SCH (15:30)
[2018-10-31 15:45] VITALS: BP 158/64
== END 2018-10-31 15:56 ==
LOC: JP.ED 14:15
DX: D69.6 Thrombocytopenia, unspecified (principal); D64.9 Anemia, unspecified; Z91.048 Other nonmedicinal substance allergy status; Z88.2 Allergy status to sulfonamides; Z79.899 Other long term (current) drug therapy
CPT/HCPCS: 36415; 81003; 85610; 85730; 99284; J7120

== ENCOUNTER → 2019-01-17 | Outpatient (CLI) | payer MEDICARE ==
--- NOTE | 2019-01-24 08:29 | CRLMY ---
BILATERAL DIGITAL SCREENING MAMMOGRAM WITH COMPUTER-AIDED DETECTION AND TOMOSYNTHESIS, 01/17/2019 CLINICAL HISTORY: Routine screening exam. COMPARISON: 01/12/2018, 09/13/2016. TECHNIQUE: Digital mammogram in CC and MLO projections including computer-aided detection (CAD). Tomosynthesis was performed. BREAST COMPOSITION: Scattered fibroglandular densities. FINDINGS: RIGHT Breast: In the upper breast on the MLO view far posteriorly approximately 11 cm from the nipple is a 1 cm mass. This is not seen on the CC view. Tomosynthesis images place this in the lateral breast. LEFT Breast: No suspicious findings. IMPRESSION: RIGHT breast asymmetry/mass. This could represent a lymph node. RECOMMENDATIONS: Additional mammographic views of the RIGHT breast including 90-degree lateral view and XCCL view. RIGHT breast ultrasound may also be required. BI-RADS Category 0: Incomplete: Need Additional Imaging Evaluation. A [facility] hardware technician will contact the patient. Dictated by Yoni Singh DO @ Jan 23 2019 10:34AM RJ/Dictated by: Yoni Singh MD @ 01/23/2019 10:40:00 AM (Electronically Signed)
== END ==
LOC: JP.MAM 07:56
PROVIDERS: ATTEND Family Medicine
DX: Z12.31 Encounter for screening mammogram for malignant neoplasm of breast (principal)
CPT/HCPCS: 77063; 77067

== ENCOUNTER 2025-04-27 04:37 | Emergency (ER) | payer MEDICARE ==
[2025-04-27 05:18] LABS: BASOPHILS ABSOLUTE AUTO 0.08 K/uL (0.00-0.10); BASOPHILS PERCENT AUTO 0.6 % (0.1-1.3); EOSINOPHILS ABSOLUTE AUTO 0.16 K/uL (0.00-0.40); EOSINOPHILS PERCENT AUTO 1.2 % (0.0-5.4); IMMATURE GRAN ABSOLUTE AUTO 0.04 K/uL (0.00-0.23); IMMATURE GRAN PERCENT AUTO 0.3 % (0.0-0.7); LYMPHOCYTES ABSOLUTE AUTO 1.37 K/uL (0.8-3.3); LYMPHOCYTES PERCENT AUTO 10.7 % (11.4-47.7); MONOCYTES ABSOLUTE AUTO 0.92 K/uL (0.20-0.90); MONOCYTES PERCENT AUTO 7.2 % (3.3-12.6); NEUTROPHILS ABSOLUTE AUTO 10.24 K/uL (1.0-7.6); NEUTROPHILS PERCENT AUTO 80.0 % (40.0-78.1); PLATELET COUNT,PLT 249 K/uL (130-375); RED BLOOD CELL COUNT 4.00 M/uL (3.77-5.24); WHITE BLOOD CELL COUNT,WBC 12.8 K/uL (3.2-11.0)
[2025-04-27] MEDS: Ondansetron 4 MG/2 ML SDV IVPUSH ONE (05:18)
[2025-04-27 05:19] LABS: APPEARANCE,URINE CLOUDY (CLEAR); GLUCOSE,URINE NEGATIVE (NEGATIVE); OCCULT BLOOD,URINE NEGATIVE (NEGATIVE)
[2025-04-27 05:25] LABS: EPITHELIAL CELLS,URINE RARE
[2025-04-27 05:37] LABS: A/G RATIO 1.0 (1.2-2.2); ALANINE AMINOTRANSFERASE,ALT 30 U/L (12-78); ASPARTATE AMNIOTRANSFERASE,AST 27 U/L (15-37); BILIRUBIN TOTAL 0.4 mg/dL (0.2-1.0); BLOOD UREA NITROGEN,BUN 25 mg/dL (7-18); CARBON DIOXIDE,CO2 28 mmol/L (21-32); CHLORIDE,CL 103 mmol/L (100-108); CREATININE 0.8 mg/dL (0.6-1.0); EST CRCL DRUG DOSING (CG) 47.10 mL/min; ESTIMATED GFR 73 mL/min (>60); GLUCOSE RANDOM 115 mg/dL (74-106); POTASSIUM,K 4.2 mmol/L (3.6-5.2); PROTEIN TOTAL,TP 7.7 g/dL (6.4-8.2); SODIUM,NA 140 mmol/L (140-148)
[2025-04-27] MEDS: Iopamidol 612 MG/ML 100 ML Bottle IV PRN (06:09)
[2025-04-27] MEDS: Sodium Chloride 0.9% 10 ML Syringe FLUSH PRN (06:09)
[2025-04-27] MEDS: Ketorolac 15 MG/ML SDV IVPUSH ONE (06:46)
[2025-04-27 07:32] VITALS: BP 141/54; PULSE 71
== END 2025-04-27 07:57 ==
LOC: JP.ED 04:37
DX: K56.609 Unspecified intestinal obstruction, unspecified as to partial versus complete obstruction (principal); E03.9 Hypothyroidism, unspecified; Z88.2 Allergy status to sulfonamides; Z88.8 Allergy status to other drugs, medicaments and biological substances; Z79.890 Hormone replacement therapy; Z79.899 Other long term (current) drug therapy
CPT/HCPCS: 36415; 74177; 80053; 81001; 83690; 85025; 96361; 96374; 96375; 99285; J1885; J2270; J2405; J7030; Q9967